=== PATIENT | male | born 1935 | race Caucasian/White ===

== ENCOUNTER 2022-04-12 18:48 | Emergency (ER) | payer OTHER ==
[2022-04-12] MEDS ORDERED: Acetaminophen 500 MG TAB ONE (20:31)
== END 2022-04-12 20:50 | disposition home or self-care (01) ==
LOC: ERS 18:48
DX: S00.12XA Contusion of left eyelid and periocular area, initial encounter (principal); W19.XXXA Unspecified fall, initial encounter
CPT/HCPCS: 70450; 70486

== ENCOUNTER 2022-10-02 10:09 | Outpatient (CLI) | payer OTHER | END 2022-10-02 10:10 | disposition home or self-care (01) | LOC: RAD 10:09 | PROVIDERS: ATTEND Physical Medicine & Rehabilitation | DX: I69.891 Dysphagia following other cerebrovascular disease (principal); R13.10 Dysphagia, unspecified; R63.30 Feeding difficulties, unspecified | CPT/HCPCS: 74230 ==

== ENCOUNTER 2022-12-24 05:13 | Inpatient (IN) | payer MEDICARE, OTHER ==
[2022-12-24] MEDS ORDERED: Morphine 4 MG/ML VIAL ONE ×2 (05:51→07:19)
[2022-12-24 06:12] LABS: #Eosinphils 0.2 thou/uL (0.0-0.7); #Lymphocytes 1.3 thou/uL (1.20-3.40); #Monocytes 0.8 thou/uL (0.11-0.59); %Basophils 0.2 % (0.0-1.0); %Eosinophils 1.5 % (0.0-10.0); %Lymphocytes 8.4 % (21.0-51.0); %Monocytes 5.2 % (0.0-10.0); %Neutrophils 84.7 % (42.0-75.0); Mean Corpuscular HGB CONC 32.2 g/dL (32.0-36.0); Mean Corpuscular Hemoglobin 31.2 pg (27.0-31.0); Mean Platelet Volume 8.9 fL (7.4-10.4); Platelet Count 179 10x3/uL (130-400); RBC Distribution Width 13.4 % (11.5-14.5); Red Blood Cell (RBC) Count 4.17 mill/uL (4.70-6.10); White Blood Cell (WBC) Count 15.4 10x3/uL (4.8-10.8)
[2022-12-24 06:39] LABS: ALT (SGPT) 22 U/L (8-55); AST (SGOT) 13 U/L (5-34); Albumin 3.2 g/dL (3.4-4.8); Alkaline Phosphatase 79 U/L (40-110); Anion Gap 13 mmol/L (10-20); BUN (Urea Nitrogen) 14 mg/dL (8.4-25.7); Bilirubin, Total 0.8 mg/dL (0.2-1.2); Calc. Creatinine Clearance 0 mL/min (70-130); Calcium 9.6 mg/dL (7.8-10.44); Carbon Dioxide 25 mmol/L (23-31); Chloride 101 mmol/L (98-107); Estimated GFR 69; Globulin 3.9 g/dL (2.4-3.5); Lipase 26 U/L (8-78); Potassium 3.9 mmol/L (3.5-5.1); Protein, Total 7.1 g/dL (5.8-8.1); Sodium 135 mmol/L (136-145)
[2022-12-24] MEDS ORDERED: cefTRIAXone (ROCEPHIN) 1 GM VIAL ONE (06:39)
[2022-12-24 06:41] LABS: Glucose 420 mg/dL (83-110)
[2022-12-24] MEDS ORDERED: Azithromycin 500 MG VIAL ONE (07:19)
[2022-12-24] MEDS ORDERED: Insulin Regular 300 UNITS/3 ML VIAL ONE ×2 (07:47→10:34)
[2022-12-24 09:09] LABS: Bilirubin Negative (Negative); Blood, Urine Negative (Negative); Glucose, Urine (Dipstick) >=1000 mg/dL (Negative); Ketone, Urine Negative (Negative); Leukocyte Negative (Negative); Nitrite Negative (Negative); Protein, Urine (Dipstick) Negative (Neg-Trace); Specific Gravity, Urine 1.025 (1.005-1.030); Urobilinogen 0.2 mg/dL (Less than 2); pH, Urine 5.5 (5.0-9.0)
[2022-12-24 09:19] LABS: Clarity Clear (Clear)
[2022-12-24 09:20] LABS: Bacteria/HPF None Seen HPF (None Seen); RBC/HPF None Seen HPF (0-3); Squamous Epithelial None Seen HPF (0-3); WBC/HPF None Seen HPF (0-3)
[2022-12-24] MEDS ORDERED: Dextrose 5% in Water 1,000 ML IV PRN (09:52)
[2022-12-24] MEDS ORDERED: hydrALAZINE 20 MG/ML VIAL SLOW IVP PRN (09:52)
[2022-12-24] MEDS ORDERED: Insulin Regular 300 UNITS/3 ML VIAL SC PRN (09:52)
[2022-12-24] MEDS ORDERED: Ondansetron PF 4 MG/2 ML Vial IVP PRN (09:52)
[2022-12-24] MEDS ORDERED: Morphine 2 MG/ML VIAL SLOW IVP PRN (09:52)
[2022-12-24] MEDS ORDERED: Dextrose 50% Abboject 50 ML SYRINGE SLOW IVP PRN (09:52)
[2022-12-24] MEDS ORDERED: Cyclobenzaprine 10 MG TAB PO PRN ×2 (09:56→11:45)
[2022-12-24] MEDS ORDERED: traMADol HCl 50 MG TAB PO PRN (09:56)
[2022-12-24 10:13] LABS: Lactic Acid 2.4 mmol/L (0.5-2.2)
[2022-12-24] MEDS ORDERED: Insulin Glargine 30 UNITS/0.3 ML VIAL SC SCH ×2 (11:00→21:00)
[2022-12-24] MEDS ORDERED: Bisacodyl 10 MG SUPP PR SCH (11:30)
[2022-12-24] MEDS ORDERED: traMADol HCl 50 MG TAB PO SCH (12:00)
[2022-12-24] MEDS ORDERED: Acetaminophen 500 MG TAB PO SCH (12:00)
[2022-12-24 12:31] VITALS: BP 116/71; TEMP 98
[2022-12-24] MEDS ORDERED: Sodium Chloride 0.9% 1,000 ML IV SCH (13:15)
[2022-12-24] MEDS ORDERED: CEFAZOLIN 2 GM in Sodium Chloride 0.9% 100 ML IVPB SCH (14:00)
[2022-12-24] MEDS ORDERED: Famotidine/PF 20 mg/2ml Vial SLOW IVP SCH (21:00)
[2022-12-24] MEDS ORDERED: Senokot S 8.6-50 MG TAB PO SCH (21:00)
[2022-12-25] MEDS ORDERED: cefTRIAXone\\ROCEPHIN 2 GM in Sodium Chloride 0.9% 100 ML IVPB SCH (08:00)
[2022-12-25] MEDS ORDERED: Ferrous Sulfate 325 MG TAB PO SCH (08:00)
[2022-12-25] MEDS ORDERED: Bisacodyl 10 MG SUPP PR SCH (09:00)
[2022-12-25] MEDS ORDERED: Loratadine 10 MG TAB PO SCH (09:00)
[2022-12-25] MEDS ORDERED: Tamsulosin HCl 0.4 MG CAP PO SCH (09:00)
[2022-12-25] MEDS ORDERED: Zinc Sulfate 220 MG CAP PO SCH (09:00)
[2022-12-25] MEDS ORDERED: Polyethylene Glycol 3350 17 GM Packet PO SCH (09:00)
[2022-12-25] MEDS ORDERED: Finasteride 5 MG TAB PO SCH (09:00)
[2022-12-25] MEDS ORDERED: Azithromycin 250 MG TAB PO SCH (09:00)
[2022-12-25] MEDS ORDERED: Atorvastatin Calcium 10 MG TAB PO SCH (21:00)
== END 2022-12-24 17:06 | disposition short-term general hospital (02) | DRG 535 ==
LOC: ERS 05:13 → ERHOLD 07:39 → OBSVTOIN 09:52 → ERHOLD 17:06
PROVIDERS: ADMIT Surgery; ATTEND Surgery
DX: S72.141A Displaced intertrochanteric fracture of right femur, initial encounter for closed fracture (principal); J18.9 Pneumonia, unspecified organism; E87.1 Hypo-osmolality and hyponatremia; J44.0 Chronic obstructive pulmonary disease with (acute) lower respiratory infection; I13.0 Hypertensive heart and chronic kidney disease with heart failure and stage 1 through stage 4 chronic kidney disease, or unspecified chronic kidney disease; E11.65 Type 2 diabetes mellitus with hyperglycemia; E78.5 Hyperlipidemia, unspecified; I50.9 Heart failure, unspecified; I25.10 Atherosclerotic heart disease of native coronary artery without angina pectoris; I48.91 Unspecified atrial fibrillation; G89.29 Other chronic pain; M81.0 Age-related osteoporosis without current pathological fracture; E11.319 Type 2 diabetes mellitus with unspecified diabetic retinopathy without macular edema; E11.22 Type 2 diabetes mellitus with diabetic chronic kidney disease; N18.2 Chronic kidney disease, stage 2 (mild); F03.90 Unspecified dementia, unspecified severity, without behavioral disturbance, psychotic disturbance, mood disturbance, and anxiety; W18.39XA Other fall on same level, initial encounter; Z95.0 Presence of cardiac pacemaker; Z86.711 Personal history of pulmonary embolism; Y92.129 Unspecified place in nursing home as the place of occurrence of the external cause; Y99.8 Other external cause status; Z98.890 Other specified postprocedural states; Z95.1 Presence of aortocoronary bypass graft; Z79.899 Other long term (current) drug therapy
CPT/HCPCS: 36415; 36416; 71045; 72170; 72192; 80053; 81003; 83605; 83690; 85025; 87040; 87077; 87086; 87186; 94640; 96361; 96365; 96367; 96375; J0456; J0696; J1815; J2270; J7050